=== PATIENT | male | born 1950 | race Caucasian/White ===

== ENCOUNTER 2024-01-30 19:32 | Emergency (ER) | payer MEDICARE ==
[~2024-01-30] VITALS: Ht 182.9 cm; Wt 98.9 kg
[2024-01-30 21:01] LABS: BASOPHILS % (AUTO) 0.4 % (0.0-2.0); EOSINOPHILS # (AUTO) 0.3 K/uL (0.0-0.7); EOSINOPHILS % (AUTO) 4.3 % (0.0-7.0); HEMATOCRIT 47.2 % (36.7-47.1); LYMPHOCYTES # (AUTO) 1.2 K/uL (0.8-4.8); MEAN CORPUSCULAR HEMOGLOBIN 28.7 uug (23.8-33.4); MEAN CORPUSCULAR HGB CONC 34 g/dL (32.5-36.3); MEAN CORPUSCULAR VOLUME 84.6 fL (73.0-96.2); MONOCYTES # (AUTO) 0.7 K/uL (0.1-1.30); MONOCYTES % (AUTO) 9.4 % (0.0-11.0); NEUTROPHILS # (AUTO) 4.9 K/uL (1.8-8.9); NEUTROPHILS % (AUTO) 68.9 % (38.5-71.5); PLATELET COUNT (AUTO) 257 K/uL (152-348); RED BLOOD CELL COUNT(AUTO) 5.58 MIL/uL (4.06-5.63); RED CELL DISTRIBUTION WIDTH 15.9 % (12.1-16.2); WHITE BLOOD COUNT (AUTO) 7.1 K/uL (3.6-10.2)
[2024-01-30 21:05] LABS: DIFFERENTIAL COMMENT 1
[2024-01-30 21:11] LABS: CALCIUM 9.8 mg/dL (8.5-10.1); CARBON DIOXIDE 31 mmol/L (21-32); CHLORIDE 104 mmol/L (98-107); CREATININE 1.5 mg/dL (0.6-1.3); GLUCOSE 97 mg/dL (74-106); SODIUM SERUM 141 mmol/L (136-145); UREA NITROGEN, BLOOD 22 mg/dL (7-18)
[2024-01-30] MEDS ORDERED: IOHEXOL 350 100 ML INFUS..BTL ONE (21:17)
[2024-01-30] MEDS ORDERED: SWABABLE VALVE TRANSFER SET EA MC ONE (21:17)
[2024-01-30] MEDS ORDERED: IV NORMAL SALINE 250 ML IV ONE (21:19)
[2024-01-30 21:23] LABS: *BILIRUBIN,URIN NEGATIVE (NEGATIVE); *BLOOD, URINE NEGATIVE (NEGATIVE); *CLARITY,URINE CLEAR (CLEAR); *COLOR,URINE YELLOW (YELLOW); *KETONES,URINE NEGATIVE (NEGATIVE); *PROTEIN,URINE 1+ (NEGATIVE); *UROBILINOGEN,URINE 0.2 E.U./dl (NORMAL); LEUKOCYTE ESTERASE ,URINE NEGATIVE (NEGATIVE); NITRITE, URINE NEGATIVE (NEGATIVE); UGLUCOSE NEGATIVE (NEGATIVE)
[2024-01-30 21:24] LABS: RBC,URINE 0-3 /HPF (0-3)
[2024-01-30 21:25] LABS: WBC,URINE 0-3 /HPF (0-3)
[2024-01-30 22:47] VITALS: BP 139/86; TEMP 98.5; O2SAT 99
== END 2024-01-30 22:47 | disposition home or self-care (01) ==
LOC: ER 19:36
DX: I48.91 Unspecified atrial fibrillation (principal); R41.0 Disorientation, unspecified; R03.0 Elevated blood-pressure reading, without diagnosis of hypertension
CPT/HCPCS: 99285; 70496; 80048; 81001; 82962; 85025; 85730; 84484; 36415; 93005; 70498; 70450; Q9967; A4606; A4663

== ENCOUNTER 2024-05-11 20:41 | Emergency (ER) | payer MEDICARE ==
[~2024-05-11] VITALS: Ht 182.9 cm; Wt 93.0 kg
[2024-05-11] MEDS ORDERED: PRED50TA PO (21:22)
[2024-05-11] MEDS ORDERED: VALA100026 PO (21:22)
[2024-05-11] MEDS ORDERED: predniSONE 50 MG TABLET ONE (21:27)
[2024-05-11] MEDS ORDERED: VALACYCLOVIR HCL 500 MG TABLET ONE (21:27)
[2024-05-11 21:37] VITALS: BP 148/92; TEMP 98.6; O2SAT 97
[2024-05-11] MEDS: VALACYCLOVIR HCL 500 MG TABLET PO ONE (21:37)
[2024-05-11] MEDS: predniSONE 50 MG TABLET PO ONE (21:37)
== END 2024-05-11 21:38 | disposition home or self-care (01) ==
LOC: ER 20:43
DX: B02.9 Zoster without complications (principal); I48.91 Unspecified atrial fibrillation; F17.200 Nicotine dependence, unspecified, uncomplicated; Z79.1 Long term (current) use of non-steroidal anti-inflammatories (NSAID); Z79.899 Other long term (current) drug therapy
CPT/HCPCS: 99283; J7512; A4606; A4663

== ENCOUNTER 2024-05-15 11:16 | Emergency (ER) | payer MEDICARE ==
[~2024-05-15] VITALS: Ht 182.9 cm; Wt 93.0 kg
[~2024-05-15 11:16] MED LIST: PRED50TA PO; VALA100026 PO
[2024-05-15 11:24] VITALS: O2SAT 98
[2024-05-15] MEDS ORDERED: VALA100026 PO (11:48)
[2024-05-15] MEDS ORDERED: PRED50TA PO (11:48)
== END 2024-05-15 11:52 | disposition home or self-care (01) ==
LOC: ER 11:16
DX: B02.9 Zoster without complications (principal); Z76.0 Encounter for issue of repeat prescription; I48.91 Unspecified atrial fibrillation; F17.200 Nicotine dependence, unspecified, uncomplicated; Z79.899 Other long term (current) drug therapy
CPT/HCPCS: A4606; A4663

== ENCOUNTER 2024-06-25 18:27 | Inpatient (IN) | payer MEDICARE ==
[~2024-06-25] VITALS: Ht 175.3 cm; Wt 97.7 kg
[2024-06-25] MEDS ORDERED: FURO-151 PO (18:38)
[2024-06-25] MEDS ORDERED: RIVA10TA PO (18:38)
[2024-06-25] MEDS ORDERED: METOPROLOL TARTRATE 5 MG/5 ML VIAL IVP ONE (19:30)
[2024-06-25] MEDS: METOPROLOL TARTRATE 5 MG/5 ML VIAL IVP ONE (19:34)
[2024-06-25 19:45] LABS: BASOPHILS # (AUTO) 0.2 K/UL (0.0-0.2); BASOPHILS % (AUTO) 2.1 % (0.0-2.0); DIFFERENTIAL COMMENT 0; EOSINOPHILS # (AUTO) 0.2 K/uL (0.0-0.7); EOSINOPHILS % (AUTO) 2.8 % (0.0-7.0); HEMATOCRIT 44.2 % (36.7-47.1); HEMOGLOBIN 14.9 g/dL (12.5-16.3); LYMPHOCYTES # (AUTO) 0.7 K/uL (0.8-4.8); LYMPHOCYTES % (AUTO) 9.1 % (20.5-51.5); MEAN CORPUSCULAR HEMOGLOBIN 30.3 uug (23.8-33.4); MEAN CORPUSCULAR HGB CONC 34 g/dL (32.5-36.3); MONOCYTES # (AUTO) 0.5 K/uL (0.1-1.30); NEUTROPHILS # (AUTO) 5.8 K/uL (1.8-8.9); PLATELET COUNT (AUTO) 222 K/uL (152-348); RED BLOOD CELL COUNT(AUTO) 4.92 MIL/uL (4.06-5.63); RED CELL DISTRIBUTION WIDTH 16.1 % (12.1-16.2); WHITE BLOOD COUNT (AUTO) 7.4 K/uL (3.6-10.2)
[2024-06-25 19:49] LABS: CALCIUM 9.6 mg/dL (8.5-10.1); CARBON DIOXIDE 31 mmol/L (21-32); CHLORIDE 104 mmol/L (98-107); CREATININE 1.1 mg/dL (0.6-1.3); GLUCOSE 94 mg/dL (74-106); SODIUM SERUM 140 mmol/L (136-145); UREA NITROGEN, BLOOD 25 mg/dL (7-18)
[2024-06-25 20:01] LABS: ALANINE AMINOTRANSFERASE 25 U/L (16-63); ALBUMIN 3.2 g/dL (3.4-5.0); ALKALINE PHOSPHATASE 86 U/L (50-136); ASPARTATE AMINOTRANSFERASE 18 U/L (15-37); BILIRUBIN,DIRECT 0.2 mg/dL (0.0-0.2); BILIRUBIN,TOTAL 0.6 mg/dL (0.2-1.0); NT-PRO BNP 2363 pg/mL (0-125); TOTAL PROTEIN, SERUM 7.2 g/dL (6.4-8.2)
[2024-06-25] MEDS ORDERED: FUROSEMIDE 20 MG/2 ML VIAL ONE (20:51)
[2024-06-25] MEDS: FUROSEMIDE 20 MG/2 ML VIAL IV ONE (20:53)
[2024-06-25] MEDS ORDERED: REMEDY ESSENTIAL ZINC PASTE 113 GM TP PRN (22:30)
[2024-06-25] MEDS ORDERED: FUROSEMIDE 40 MG TABLET PO PRN (22:30)
[2024-06-25] MEDS ORDERED: ACETAMINOPHEN 325 MG TABLET PO PRN (22:30)
[2024-06-25] MEDS ORDERED: RIVAROXABAN 10 MG TABLET ONE (23:19)
[2024-06-25] MEDS ORDERED: BUMETANIDE 1 MG/4 ML VIAL ONE (23:48)
[2024-06-26] MEDS: BUMETANIDE INJ 6 MG in IV DEXTROSE 5% 36 ML IV ONE (00:33)
[2024-06-26 05:06] VITALS: O2SAT 99
[2024-06-26 06:43] LABS: BASOPHILS % (AUTO) 0.4 % (0.0-2.0); EOSINOPHILS # (AUTO) 0.1 K/uL (0.0-0.7); EOSINOPHILS % (AUTO) 1.3 % (0.0-7.0); HEMOGLOBIN 14.3 g/dL (12.5-16.3); LYMPHOCYTES # (AUTO) 1.1 K/uL (0.8-4.8); LYMPHOCYTES % (AUTO) 14.6 % (20.5-51.5); MEAN CORPUSCULAR HEMOGLOBIN 30.5 uug (23.8-33.4); MEAN CORPUSCULAR HGB CONC 34 g/dL (32.5-36.3); MEAN CORPUSCULAR VOLUME 89.2 fL (73.0-96.2); MONOCYTES # (AUTO) 0.7 K/uL (0.1-1.30); MONOCYTES % (AUTO) 9.4 % (0.0-11.0); NEUTROPHILS # (AUTO) 5.7 K/uL (1.8-8.9); NEUTROPHILS % (AUTO) 74.3 % (38.5-71.5); PLATELET COUNT (AUTO) 234 K/uL (152-348); RED BLOOD CELL COUNT(AUTO) 4.71 MIL/uL (4.06-5.63); RED CELL DISTRIBUTION WIDTH 15.7 % (12.1-16.2); WHITE BLOOD COUNT (AUTO) 7.7 K/uL (3.6-10.2)
[2024-06-26 06:47] LABS: DIFFERENTIAL COMMENT 1
[2024-06-26 07:02] LABS: CALCIUM 9.5 mg/dL (8.5-10.1); CARBON DIOXIDE 32 mmol/L (21-32); CHLORIDE 104 mmol/L (98-107); CHOLESTEROL 173 mg/dL (<200); CREATININE 1.3 mg/dL (0.6-1.3); GLUCOSE 98 mg/dL (74-106); HDL CHOLESTEROL 54 mg/dL (40-60); MAGNESIUM 2.2 mg/dL (1.8-2.4); PHOSPHOROUS 3.3 mg/dL (2.5-4.9); POTASSIUM 3.2 mmol/L (3.5-5.1); SODIUM SERUM 142 mmol/L (136-145); TRIGLYCERIDES 72 MG/DL (30-150); UREA NITROGEN, BLOOD 23 mg/dL (7-18)
[2024-06-26 07:06] LABS: THYROID STIMULATING HORMONE 6.175 mIU/mL (0.358-3.740)
[2024-06-26 08:00] VITALS: BP 140/83; TEMP 97.6; O2SAT 98
[2024-06-26] MEDS ORDERED: RIVAROXABAN 10 MG TABLET PO SCH ×3 (09:00→18:00)
[2024-06-26] MEDS: POTASSIUM CHLORIDE 20 MEQ POWDER PACKET GT ONE (09:06)
[2024-06-26] MEDS: POTASSIUM CHLORIDE 50 ML IV SCH (09:06)
[2024-06-26] MEDS: MORPHINE SULFATE 2 MG/1 ML DISP.SYRIN IV ONE (10:47)
[2024-06-26] MEDS: DILTIAZEM HCL CD 120 MG CAP.SR.24H PO SCH (10:47)
[2024-06-26] MEDS: ONDANSETRON 4 MG/2 ML VIAL IV PRN (10:48)
[2024-06-26] MEDS: HYDROCODONE/APAP 5-325MG TABLET PO PRN (11:36)
[2024-06-26 12:00] VITALS: BP 95/55; TEMP 98.2; O2SAT 97
[2024-06-26] MEDS ORDERED: DILT-2 PO (15:52)
[2024-06-26 16:00] VITALS: BP 96/57; TEMP 98.2; O2SAT 97
[2024-06-26] MEDS: RIVAROXABAN 10 MG TABLET PO SCH (16:43)
[2024-06-26] MEDS ORDERED: RIVAROXABAN 15 MG TABLET PO SCH ×2 (18:00)
== END 2024-06-26 16:55 | disposition home or self-care (01) | DRG 291 ==
LOC: ER 18:28 → TELE3 22:09
PROVIDERS: ADMIT Nurse Practitioner Acute Care; ATTEND Nurse Practitioner Acute Care
DX: I11.0 Hypertensive heart disease with heart failure (principal); I50.33 Acute on chronic diastolic (congestive) heart failure; I48.20 Chronic atrial fibrillation, unspecified; I48.91 Unspecified atrial fibrillation; I16.0 Hypertensive urgency; Z79.01 Long term (current) use of anticoagulants; E66.9 Obesity, unspecified; Z68.31 Body mass index [BMI] 31.0-31.9, adult; I25.10 Atherosclerotic heart disease of native coronary artery without angina pectoris; Z79.899 Other long term (current) drug therapy; E87.6 Hypokalemia; E03.8 Other specified hypothyroidism; Z87.891 Personal history of nicotine dependence; M79.632 Pain in left forearm
CPT/HCPCS: 36415; 71045; 73090; 83735; 84100; 84443; 84484; 85025; 85730; 93005; 93307; A4663; G0378; J1940; J2270; J2405; J3480; J3490; J7120

== ENCOUNTER 2024-10-10 14:47 | Emergency (ER) | payer MEDICARE ==
[~2024-10-10] VITALS: Ht 182.9 cm; Wt 94.8 kg
[~2024-10-10 14:47] MED LIST changes: +DILT-2 PO; +FURO-151 PO; -PRED50TA PO; +RIVA10TA PO; -VALA100026 PO
[2024-10-10] MEDS ORDERED: KETOROLAC TROMETHAMINE 30 MG INJ ONE (15:52)
[2024-10-10] MEDS ORDERED: OXYCODONE/APAP 5-325 MG TABLET ONE (15:53)
[2024-10-10] MEDS: OXYCODONE/APAP 5-325 MG TABLET PO ONE (16:02)
[2024-10-10] MEDS: KETOROLAC TROMETHAMINE 30 MG INJ IM ONE (16:02)
[2024-10-10] MEDS ORDERED: OXYC-133 PO (17:06)
[2024-10-10] MEDS ORDERED: IBUP-1955 PO (17:06)
[2024-10-10 17:18] VITALS: BP 132/85; O2SAT 98
== END 2024-10-10 17:18 | disposition home or self-care (01) ==
LOC: ER 14:47
DX: M47.812 Spondylosis without myelopathy or radiculopathy, cervical region (principal); F17.200 Nicotine dependence, unspecified, uncomplicated; I48.91 Unspecified atrial fibrillation; Z79.01 Long term (current) use of anticoagulants; Z88.7 Allergy status to serum and vaccine; Z87.09 Personal history of other diseases of the respiratory system
CPT/HCPCS: 99283; 72040; 96372; J1885; A4606; A4663